=== PATIENT | female | born 1990 | race Caucasian/White ===

== ENCOUNTER 2016-12-04 12:24 | Day surgery (SDC) | payer OTHER ==
--- NOTE | 2016-12-04 08:10 | HP ---
DATE OF SURGERY: 12/04/2016 HISTORY OF PRESENT ILLNESS: The patient is a 26 year-old with two year history worse now, comes and goes, worse with fatty foods, epigastric and right upper quadrant pain radiating to her back and ribs associated with some nausea and vomiting. No jaundice. No change in bowel movements. CT question of stones. She had ERCP that did not show any evidence of any obvious change. PAST MEDICAL HISTORY: He denies any chronic illnesses. MEDICATIONS: Ortho Tri-Cyclen. ALLERGIES: NKDA. PAST SURGICAL HISTORY: None. FAMILY HISTORY: Negative in regards to this problem. SOCIAL HISTORY: No smoking or alcohol abuse. REVIEW OF SYSTEMS: Ten systems reviewed per admission assessment. No chest pain or palpitations other systems negative or noncontributory as above and per admission questionnaire. PHYSICAL EXAMINATION: GENERAL: No acute distress. HEENT: Sclerae nonicteric. NECK: No JVD. CHEST: Equal excursion, nonlabored breathing. CVS: Regular rate and rhythm. ABDOMEN: Soft, some mild tenderness epigastrium and right upper quadrant. EXTREMITIES: No significant edema. NEURO: Alert, moving extremities symmetrically. No gross motor deficits noted. IMPRESSION: Symptomatic cholelithiasis, probable chronic cholelithiasis. I feel the patient will benefit from cholecystectomy. Risks and benefits explained in detail including but not limited to bleeding or infection, risk of trocar injury or hernia, small risk of bowel, bladder or blood vessel injury, small risk of bile leak, bile duct injury, retained stone or sludge possibly requiring further procedure either open or ERCP, general risk of anesthesia, deep venous thrombosis, pulmonary embolism, pneumonia, perioperative risk of aches, pains, bloating, constipation or loose stools but not limited to. General risk of anesthesia or sedation, as well as the possibility that this procedure may not improve her symptoms that she may need further work up and/or testing, or endoscopy. She understands and agrees to the planned procedure, will proceed with laparoscopic cholecystectomy with possible open as an outpatient.
[~2016-12-04 12:24] MED LIST: BREVIBLOC 100 MG/10 ML IV ONE; BRIDION 200MG/2ML IV ONE; DILAUDID 2 MG INJECTION IV ONE; DIPRIVAN 200 MG/20 ML IV ONE; Decadron 4 MG INJ IV ONE; Lactated Ringers 1,000 ML IV ONE; Lactated Ringers 1,000 ML IV SCH; MEFOXIN 2 GM PREMIX** 50 ML IV ONE; OFIRMEV 100 ML IV ONE; Quelicin Fliptop 200 MG/10 ML IJ ONE; SUBLIMAZE 100 MCG/2 ML IV ONE; Sensorcaine 0.25% 10 ML ONE; TORAdol 30 mg Injection IJ ONE; Zemuron 100 MG/10 ML IJ ONE; Zofran 4 MG/2 ML VIAL IV ONE
--- NOTE | 2016-12-04 14:34 | OP ---
SURGERY DATE: 12/04/16 SURGERY TIME: 1305 PREOPERATIVE DIAGNOSIS: 1. SYMPTOMATIC CHOLELITHIASIS, CHRONIC CHOLECYSTITIS. POSTOPERATIVE DIAGNOSIS: 1. SYMPTOMATIC CHOLELITHIASIS, CHRONIC CHOLECYSTITIS. PROCEDURE: 1. Laparoscopic cholecystectomy. SURGEON: Dr. Odilon Clark. NATIONAL SALES CONSULTANT: Gerard Monroe MS-III. ANESTHESIA: General. ESTIMATED BLOOD LOSS: Minimal. INDICATIONS: As noted above. Risks and benefits explained in detail, but not limited to. Consent was obtained. DESCRIPTION OF PROCEDURE AND FINDINGS: The patient was taken to the OR. General anesthesia was induced. The abdomen was prepped and draped in the usual sterile fashion. After official time-out, no disagreement in planned procedure. Transverse incision made at the supraumbilical area. She had a supraumbilical piercing. Fascia grasped and pulled up. Veress needle inserted. Tested with saline. Pneumoperitoneum accomplished insufflating from an opening pressure of 0-15. 5 mm bladeless port and camera inserted without difficulty in the right upper quadrant as well as another 5 mm port in the right upper quadrant and 5 mm epigastric port. A 10-11 port placed under direct vision with the camera at the subumbilical area. There was no evidence of any intraabdominal injury secondary to trocar insertion. The gallbladder was grasped and retracted up over the edge of the liver and laterally away from Calot's triangle. Dissection carried from posterolateral to anterior fashion. Slowly, carefully, the cystic duct/infundibular junction was slowly, carefully well skeletonized so the critical view was obtained both anteriorly and posteriorly. Once this was accomplished, the main cystic artery and cystic duct were clipped X 3 and divided in the usual fashion. Additional oozing side branches off the cystic artery directly on the gallbladder wall were clipped as necessary. The gallbladder was slowly, carefully dissected free from its dense attachments to the liver bed. Just prior to releasing the final attachments to the anterior edge of the liver, one of the graspers tore a small, little hole in the gallbladder spilling some sludge and very small, tiny stones. These were retrieved with the blunt scoop and the gallbladder carefully freed. Just prior to releasing the final attachments to the anterior edge of the liver, the liver bed reinspected. Clips noted to be in placed in the cystic duct/cystic artery stumps. There were no signs of any active bleeding or bile leakage. Clips noted to be in place in the cystic duct/cystic artery stumps. It was felt there was no benefit of drain placement. At this point, the gallbladder was placed in a Pleatman's sac, pulled up in the 10-11 port site at the subumbilical area. Fascia spread slightly with a clamp with the Pleatman's sac and gallbladder pulled free and passed off intact. The port was replaced and multiple small, little, tiny stones lateral to the liver and subhepatic space that had fallen out of the small tear in the gallbladder, were carefully retrieved with a combination of the blunt scoop as well as suction irrigated to suck these tiny stones up. A copious amount of irrigation irrigating until clear. There were no visible remaining specks of stones or particles. Irrigation had been clear. Clips were noted to be in place in cystic duct/cystic artery stumps. It was felt there were no signs of any active bleeding or bile leakage. Clips noted to be in place in the cystic duct/cystic artery stumps. It was felt there was no benefit of a drain placement at this point. The 10-11 port site was closed with puncture closure device and #1 Vicryl. Pneumoperitoneum decompressed. Wounds irrigated out. Skin incision closed with 4-0 Vicryl. Steri-strips and sterile dressing applied. 0.25% Marcaine local had been injected along each skin incision and fascial defect. The patient tolerated the procedure well. There were no immediate complications. Findings were discussed with the family out in the waiting area.
[2016-12-04 15:31] VITALS: BP 108/64; PULSE 64; O2SAT 98
== END 2016-12-04 15:25 | disposition home or self-care (01) ==
LOC: SDC 12:24
PROVIDERS: ATTEND Surgery
PROC: 0FT44ZZ Resection of Gallbladder, Percutaneous Endoscopic Approach (ICD-10-PCS; principal; 2016-12-04)
DX: K80.10 Calculus of gallbladder with chronic cholecystitis without obstruction (principal)
CPT/HCPCS: 00790; 36415; 84703; 88304; J0330; J0694; J1100; J1170; J1885; J2405; J2704; J3010

== ENCOUNTER 2017-04-06 11:07 | Emergency (ER) | payer MEDICAID, OTHER ==
[2017-04-06] MEDS ORDERED: Sodium Chloride 0.9% 1000 ML 1,000 ML IV STA (11:17)
--- NOTE | 2017-04-06 11:22 | ERPHSYRPT ---
- History of Present Illness Time Seen by Provider: 04/06/17 11:13 Source: patient Exam Limitations: no limitations Patient Subjective Stated Complaint: PT REPORTS LOW ABD CRAMPING BEGINNING KJ 1 HR AGO-STATES THAT THIS IS HER THIRD PREGANCY ET SHE HAS NEVER HAD CRAMPING LIKE THIS-FLY VAGINAL DISCHARGE Triage Nursing Assessment: PT PINK WARM ET DRY-RESP EASY ET NONLABORED-ABD NONTENDER TO TOUCH Physician History: 26-year-old white female 3 para 2 who states she is 14 weeks estimated gestational age. Arrives with complaint of suprapubic cramping symptoms for one hour. Patient denies dysuria hematuria vaginal bleeding or vaginal discharge she has no nausea vomiting.. Past medical history patient denies. Past surgical history 2 Timing/Duration: today (one hour) Severity: moderate Modifying Factors: Improves With: nothing Associated Symptoms: abdominal pain (suprapubic abdominal cramping), No nausea, No vomiting, No shortness of breath, No heartburn, No diaphoresis, No cough, No chills, No chest pain, No fever, No headaches, No loss of appetite, No malaise, No rash, No syncope, No seizure, No weakness Allergies/Adverse Reactions: No Known Drug Allergies Allergy (Verified 12/04/16 12:54) Home Medications: Norgestimate-Ethinyl Estradiol [Ortho Tri-Cyclen] 1 each PO DAILY 11/08/16 [ History] Hx Tetanus, Diphtheria Vaccination/Date Given: Yes Hx Influenza Vaccination/Date Given: No Hx Pneumococcal Vaccination/Date Given: No Immunizations Up to Date: Yes - Review of Systems Constitutional: No Fever, No Chills Eyes: No Symptoms Ears, Nose, & Throat: No Symptoms Respiratory: No Cough, No Dyspnea Cardiac: No Chest Pain, No Edema, No Syncope Abdominal/Gastrointestinal: Abdominal Pain, No Nausea, No Vomiting, No Diarrhea , No Constipation, No Hematemesis, No Hematochezia, No Melena, No Dysphagia, No Appetite Changes Genitourinary Symptoms: (patient states she is 14 weeks ), No Dysuria, No Frequency, No Hematuria, No Hesitancy, No Incontinence, No Urgency, No Urinary Retention, No Flank Pain, No Menorrhagia Musculoskeletal: No Back Pain, No Neck Pain Skin: No Rash Neurological: No Dizziness, No Focal Weakness, No Sensory Changes Psychological: No Symptoms Endocrine: No Symptoms All Other Systems: Reviewed and Negative - Past Medical History Pertinent Past Medical History: Yes Neurological History: No Pertinent History ENT History: No Pertinent History Cardiac History: No Pertinent History Respiratory History: No Pertinent History Endocrine Medical History: No Pertinent History Musculoskeletal History: No Pertinent History GI Medical History: Gallbladder Disease History: No Pertinent History Psycho-Social History: No Pertinent History Female Reproductive Disorders: No Pertinent History - Past Surgical History Past Surgical History: Yes Neuro Surgical History: No Pertinent History Cardiac: No Pertinent History Respiratory: No Pertinent History Gastrointestinal: Cholecystectomy Genitourinary: No Pertinent History Musculoskeletal: No Pertinent History Female Surgical History: Section Other Surgical History: one general anesthesia . one spinal - Social History Smoking Status: Current every day smoker How long have you smoked: 1 year Exposure to second hand smoke: Yes Drug Use: none Patient Lives Alone: No - Nursing Vital Signs Nursing Vital Signs: Initial Vital Signs Temperature 98.0 F 04/06/17 11:19 Pulse Rate 71 04/06/17 11:19 Respiratory Rate 20 04/06/17 11:19 Blood Pressure 100/52 04/06/17 11:19 O2 Sat by Pulse Oximetry 99 04/06/17 11:19 Pain Scale Pain Intensity 0 - Physical Exam General Appearance: mild distress Eye Exam: PERRL/EOMI, eyes nml inspection Ears, Nose, Throat Exam: normal ENT inspection, TMs normal, pharynx normal, moist mucous membranes Neck Exam: normal inspection, non-tender, supple, full range of motion Respiratory Exam: normal breath sounds, lungs clear, No respiratory distress Cardiovascular Exam: regular rate/rhythm, normal heart sounds, normal peripheral pulses Gastrointestinal/Abdomen Exam: soft, normal bowel sounds, tenderness (mild suprapubic tenderness with palpation), No distention, No guarding, No pulsatile mass Pelvic Exam: normal external exam, vaginal discharge (moderate amount of white vaginal discharge), No adnexal tenderness, No adnexal mass, No cervical motion tenderness Back Exam: normal inspection, normal range of motion, No CVA tenderness, No vertebral tenderness Extremity Exam: normal inspection, normal range of motion, pelvis stable, other (cervix closed) Neurologic Exam: alert, oriented x 3, cooperative, normal mood/affect, nml cerebellar function, nml station & gait, sensation nml, No motor deficits Skin Exam: normal color, warm, dry, No rash Lymphatic Exam: No adenopathy SpO2 Interpretation: normal - Course Nursing assessment & vital signs reviewed: Yes Ordered Tests: Active Orders 24 hr Category Date Time Status Heart Tones-ED STAT Care 04/06/17 11:17 Active IV Insertion STAT Care 04/06/17 11:17 Active Pelvic Exam Assist STAT Care 04/06/17 11:17 Active CBC W DIFF Stat Lab 04/06/17 11:20 Completed CMP Stat Lab 04/06/17 11:20 Completed CULTURE,URINE Stat Lab 04/06/17 11:20 Received HCG, Quantitative (Inhouse) Stat Lab 04/06/17 11:20 Completed UA W/ MICROSCOPIC Stat Lab 04/06/17 11:20 Completed Wet Prep Stat Lab 04/06/17 12:00 Completed Medication Summary Discontinued Medications Generic Name Dose Route Start Last Admin Trade Name Freq PRN Reason Stop Dose Admin Sodium Chloride 1,000 mls @ 999 mls/hr 04/06/17 11:17 04/06/17 11:29 Sodium Chloride 0.9% 1000 Ml IV 04/06/17 12:17 999 mls/hr .Q1H1M STA Administration Sodium Chloride Confirm 04/06/17 11:28 Sodium Chloride 0.9% 1000 Ml Administered 04/06/17 11:29 Dose 1,000 mls @ ud .ROUTE .[facility] Lab/Rad Data: Laboratory Result Diagrams 04/06/17 11:20 04/06/17 11:20 Laboratory Results 04/06/17 04/06/17 04/06/17 Range/Units 12:00 11:20 11:20 WBC 8.9 (4.0-10.5) K/mm3 RBC 4.38 (4.1-5.4) M/mm3 Hgb 13.6 (12.0-16.0) gm/dl Hct 39.3 (35-47) % MCV 89.7 (78-100) fl MCH 31.1 (26-32) pg MCHC 34.6 (32-36) g/dl RDW 13.5 (11.5-14.0) % Plt Count 199 (150-450) K/mm3 MPV 10.4 H (6-9.5) fl Gran % 72.3 H (36.0-66.0) % Lymphocytes % 21.7 L (24.0-44.0) % Monocytes % 5.5 (0.0-12.0) % Eosinophils % 0.3 (0.00-5.0) % Basophils % 0.2 (0.0-0.4) % Basophils # 0.02 (0-0.4) Sodium 137 (136-145) mEq/L Potassium 3.6 (3.5-5.1) mEq/L Chloride 103 (98-107) mEq/L Carbon Dioxide 24.6 (21-32) mEq/L Anion Gap 12.6 (5-15) MEQ/L BUN 5 L (9-20) mg/dL Creatinine 0.75 (0.55-1.30) mg/dl Estimated GFR > 60 ML/MIN Glucose 83 (70-110) MG/DL Calcium 8.8 (8.5-10.1) mg/dL Total Bilirubin 0.70 (0.2-1.0) mg/dL AST 19 (15-37) U/L ALT 18 (12-78) U/L Alkaline Phosphatase 59 (46-116) U/L Serum Total Protein 6.7 (6.4-8.2) gm/dL Albumin 3.3 L (3.4-5.0) g/dL Beta HCG, Quant [id number] H (0-6) IU/L Ur Collection Type Urine Color (YELLOW) Urine Appearance (CLEAR) Urine pH (5-6) Ur Specific [place] (1.005-1.025) Urine Protein (Negative) Urine Ketones (NEGATIVE) Urine Blood (0-5) Thor/ul Urine Nitrite (NEGATIVE) Urine Bilirubin (NEGATIVE) Urine Urobilinogen (0-1) mg/dL Ur Leukocyte Esterase (NEGATIVE) Urine Microscopic RBC (0-2) /HPF Urine Microscopic WBC (0-5) /HPF Ur Epithelial Cells (FEW) /HPF Urine Bacteria (NEGATIVE) /HPF Urine Glucose (NEGATIVE) mg/dL WBC (Wet Prep) Few RBC (Wet Prep) Rare Epi Cells (Wet Prep) Moderate Bacteria (Wet Prep) Moderate Clue Cells (Wet Prep) None Seen Trichomonas (Wet Prep) None Seen Budding Yeast (Wet Prp) None Seen Specimen Received 04/06/17 Range/Units 11:20 WBC (4.0-10.5) K/mm3 RBC (4.1-5.4) M/mm3 Hgb (12.0-16.0) gm/dl Hct (35-47) % MCV (78-100) fl MCH (26-32) pg MCHC (32-36) g/dl RDW (11.5-14.0) % Plt Count (150-450) K/mm3 MPV (6-9.5) fl Gran % (36.0-66.0) % Lymphocytes % (24.0-44.0) % Monocytes % (0.0-12.0) % Eosinophils % (0.00-5.0) % Basophils % (0.0-0.4) % Basophils # (0-0.4) Sodium (136-145) mEq/L Potassium (3.5-5.1) mEq/L Chloride (98-107) mEq/L Carbon Dioxide (21-32) mEq/L Anion Gap (5-15) MEQ/L BUN (9-20) mg/dL Creatinine (0.55-1.30) mg/dl Estimated GFR ML/MIN Glucose (70-110) MG/DL Calcium (8.5-10.1) mg/dL Total Bilirubin (0.2-1.0) mg/dL AST (15-37) U/L ALT (12-78) U/L Alkaline Phosphatase (46-116) U/L Serum Total Protein (6.4-8.2) gm/dL Albumin (3.4-5.0) g/dL Beta HCG, Quant (0-6) IU/L Ur Collection Type VOID Urine Color YELLOW (YELLOW) Urine Appearance CLEAR (CLEAR) Urine pH 8.0 (5-6) Ur Specific [place] 1.010 (1.005-1.025) Urine Protein NEGATIVE (Negative) Urine Ketones NEGATIVE (NEGATIVE) Urine Blood 5-10 (0-5) Thor/ul Urine Nitrite NEGATIVE (NEGATIVE) Urine Bilirubin NEGATIVE (NEGATIVE) Urine Urobilinogen NORMAL (0-1) mg/dL Ur Leukocyte Esterase TRACE (NEGATIVE) Urine Microscopic RBC 2-5 (0-2) /HPF Urine Microscopic WBC 2-5 (0-5) /HPF Ur Epithelial Cells MANY (FEW) /HPF Urine Bacteria MODERATE (NEGATIVE) /HPF Urine Glucose NEGATIVE (NEGATIVE) mg/dL WBC (Wet Prep) RBC (Wet Prep) Epi Cells (Wet Prep) Bacteria (Wet Prep) Clue Cells (Wet Prep) Trichomonas (Wet Prep) Budding Yeast (Wet Prp) Specimen Received 04/06/17 1130 - Progress Progress: improved Progress Note: 04/06/17 13:04 26-year-old white female 3 para 2 with a history of 2 arrives with suprapubic cramping for one hour prior to arrival. She states her last period was December 27, 2016 she states she is 14 weeks estimated gestational age she has had an ultrasound prior during this . Patient denied any vaginal discharge she denied any urinary symptoms physical examination shows normal female external genitalia small amount of white vaginal discharge cervix is closed abdomen minimal tenderness in the suprapubic region no bleeding heart tones are in the 160s urinalysis does show 2-5 white cells 2-5 red cells per high-power field negative nitrites Patient is feeling much better after IV normal saline Will plan to discharge. Will place patient on Macrobid 100 mg orally twice a day for 10 days - Departure Time of Disposition: 13:06 Departure Disposition: Home Clinical Impression: Suprapubic abdominal pain, Intrauterine Condition: Fair Critical Care Time: No Additional Instructions: Return home. Macrobid 100 mg orally twice a day for 10 days. Plenty of fluids. Tylenol every 4 hours as needed for pain. Follow-up with your family doctor or early childhood education coordinator physician. Return for acute distress or for severe symptoms. Prescriptions: Nitrofurantoin Macro 100 mg [Macrobid 100MG Capsule] 100 mg PO BID #20 capsule
[2017-04-06] MEDS ORDERED: Sodium Chloride 0.9% 1000 ML 1,000 ML ONE (11:28)
[2017-04-06 11:35] LABS: BASOPHIL % 0.2 % (0.0-0.4); Eosinophil % 0.3 % (0.00-5.0); Granulocytes % 72.3 % (36.0-66.0); Lymphocytes % 21.7 % (24.0-44.0); Mean Cell Volume 89.7 fl (78-100); Mean Corpuscular Hemoglobin 31.1 pg (26-32); Mean Platelet Volume 10.4 fl (6-9.5); Monocytes % 5.5 % (0.0-12.0); Platelet Count 199 K/mm3 (150-450); Red Blood Count 4.38 M/mm3 (4.1-5.4); Red Cell Distribution Width 13.5 % (11.5-14.0); White Blood Count 8.9 K/mm3 (4.0-10.5)
[2017-04-06 11:38] LABS: Collection Type VOID; Leukocyte Esterase TRACE (NEGATIVE)
[2017-04-06 11:39] LABS: ADD URINE CULTURE? YES (NO); Bilirubin NEGATIVE (NEGATIVE); COMPLETE URINE MICROSCOPIC? YES; Glucose NEGATIVE (NEGATIVE)
[2017-04-06 11:48] LABS: Bacteria MODERATE /HPF (NEGATIVE); Epithelial Cells MANY /HPF (FEW)
[2017-04-06 12:27] LABS: ALBUMIN 3.3 g/dL (3.4-5.0); ALKALINE PHOSPHATASE 59 U/L (46-116); ANION GAP 12.6 MEQ/L (5-15); BLOOD UREA NITROGEN 5 mg/dL (9-20); CHLORIDE 103 mEq/L (98-107); Carbon Dioxide 24.6 mEq/L (21-32); Glucose 83 MG/DL (70-110); HCG, Quantitative (Inhouse) 75321 IU/L (0-6); Potassium 3.6 mEq/L (3.5-5.1); SGOT/AST 19 U/L (15-37); SGPT/ALT 18 U/L (12-78); SODIUM 137 mEq/L (136-145); Total Protein 6.7 gm/dL (6.4-8.2)
[2017-04-06 12:53] LABS: Bacteria Moderate; Clue Cells None Seen; Trichomonas None Seen; Yeast None Seen
[2017-04-06 13:15] VITALS: BP 100/55; PULSE 71; O2SAT 97
[2017-04-06 14:10] LABS: CHLAMYDIA DNA POSITIVE
== END 2017-04-06 13:14 | disposition home or self-care (01) ==
LOC: ED 11:07
DX: O26.892 Other specified pregnancy related conditions, second trimester (principal); Z3A.14 14 weeks gestation of pregnancy; R10.9 Unspecified abdominal pain
CPT/HCPCS: 36000; 36415; 80053; 81000; 84702; 85025; 87086; 87210; 87490; 87590; 96360; 99284